=== PATIENT | female | born 1955 | race Caucasian/White ===

== ENCOUNTER 2021-10-17 20:36 | Outpatient (CLI) | payer MEDICARE, OTHER | END 2021-10-17 20:37 | disposition critical access hospital (66) | LOC: EMS 20:36 | DX: S06.9X1A Unspecified intracranial injury with loss of consciousness of 30 minutes or less, initial encounter (principal); R41.3 Other amnesia; W18.39XA Other fall on same level, initial encounter; Y93.51 Activity, roller skating (inline) and skateboarding; Y92.331 Roller skating rink as the place of occurrence of the external cause | CPT/HCPCS: A0425; A0429 ==

== ENCOUNTER 2021-10-17 20:47 | Emergency (ER) | payer MEDICARE, OTHER ==
--- NOTE | 2021-10-17 21:27 | ED Physician Documentation ---
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 Chronic cervical neck pain - Past Surgical History Past Surgical History: Yes Ortho: Spine surgery - Allergies Allergies/Adverse Reactions: Allergies Allergy/AdvReac Type Severity Reaction Status Date / Time No Known Drug Allergies Allergy Verified 10/17/21 22:24 - Social History Does the pt smoke?: No Smoking Status: Former smoker Does the pt drink ETOH?: No Does the pt have substance abuse?: No - Immunizations Immunizations are current?: Yes Results - Vitals Vitals: Oxygen O2 Source Room air - Labs Labs: Laboratory Tests 10/17/21 10/17/21 10/17/21 22:12 22:12 22:12 WBC 11.1 H RBC 4.74 Hgb 14.8 Hct 43.6 MCV 92.0 MCH 31.2 H MCHC 33.9 RDW 11.5 L Plt Count 255 MPV 10.1 Neut # (Auto) 8.6 H Lymph # (Auto) 1.8 [place] # (Auto) 0.6 Eos # (Auto) 0.1 Baso # (Auto) 0.0 Absolute Nucleated RBC 0.00 Nucleated RBC % 0.0 Sodium 137 Potassium 3.5 Chloride 100 L Carbon Dioxide 25 Anion Gap 12.0 BUN 12 Creatinine 1.0 Estimated GFR (MDRD) 55 L Glucose 118 H Calcium 9.2 Troponin I High Sens 9.0 Departure - Departure Disposition: 01 Home, Self Care Clinical Impression: Syncope Qualifiers: Syncope type: unspecified Qualified Code(s): R55 - Syncope and collapse Condition: Good Instructions: ED Head Injury Closed, ED Fainting Unkn Cause Follow-Up: BHUMI FIGUEROA MD [Primary Care Provider] - Comments: As we discussed, it is unclear if you fell because you passed out (syncope), or passed out because you fell (and presumably hit your head if this is the case). You also could have passed out and then hit your head. The CT head is unremarkable; there is no evidence on the physical exam nor CT head of concerning injury. Your EKG and blood tests (including a cardiac blood test) are unremarkable. This is reassuring, but further testing might be necessary (at the discretion of your primary care provider). Discharge Date/Time: 10/18/21 00:47
[2021-10-17 22:28] LABS: BASOPHILS % (AUTO) 0.4 %; EOSINOPHILS # (AUTO) 0.1 10^3/uL (0.0-0.7); EOSINOPHILS % (AUTO) 0.7 %; HCT - HEMATOCRIT 43.6 % (37.0-47.0); HGB - HEMOGLOBIN 14.8 g/dL (12.0-16.0); LYMPHOCYTES # (AUTO) 1.8 10^3/uL (1.5-3.5); LYMPHOCYTES % (AUTO) 16.2 %; MEAN CORPUSCULAR HEMOGLOBIN 31.2 pg (27.0-31.0); MEAN CORPUSCULAR HGB CONC 33.9 g/dL (32.0-36.0); MEAN PLATELET VOLUME 10.1 fL (7.9-10.8); MONOCYTES # (AUTO) 0.6 10^3/uL (0.0-1.0); MONOCYTES % (AUTO) 4.9 %; NEUTROPHILS # (AUTO) 8.6 10^3/uL (1.5-6.6); NEUTROPHILS % (AUTO) 77.3 %; PLT - PLATELET COUNT 255 10^3/uL (130-450); RED BLOOD COUNT 4.74 10^6/uL (4.20-5.40); RED CELL DISTRIBUTION WIDTH 11.5 % (12.0-15.0); WHITE BLOOD COUNT 11.1 x10^3/uL (4.8-10.8)
--- NOTE | 2021-10-17 22:33 | CT Report ---
PROCEDURE: HEAD WO INDICATIONS: Head injury with LOC TECHNIQUE: Noncontrast 4.5 mm thick angled axial sections acquired from the foramen magnum to the vertex. For r adiation dose reduction, the following was used: automated exposure control, adjustment of mA and/or kV according to patient size. COMPARISON: None. FINDINGS: Image quality: Excellent. CSF spaces: Basal cisterns are patent. No extra-axial fluid collections. Ventricles are normal in size and shape. Brain: No midline shift. No intracranial masses or hemorrhage. Wiley-white matter interface is norm al. Skull and face: Calvarium and visualized facial bones are intact, without suspicious lesions. Sinuses: Visualized sinuses and mastoids are clear. IMPRESSION: No acute intracranial abnormality. Reviewed by: Toy Ferraro MD on 10/17/2021 10:31 PM [facility] [place] Approved by: Toy Ferraro MD on 10/17/2021 10:31 PM [facility] [place] Station ID: [id number]
[2021-10-17 22:40] LABS: CALCIUM 9.2 mg/dL (8.5-10.3); POTASSIUM 3.5 mmol/L (3.5-5.0)
[2021-10-18 00:04] VITALS: BP 158/81
--- NOTE | 2021-10-19 09:35 | ED Physician Documentation ---
PD HPI SYNCOPE - Stated complaint Stated Complaint: GLF/HEAD INJ - Chief complaint Chief Complaint: General - History obtained from History obtained from: Patient - History of Present Illness Witnessed: Unwitnessed Timing - onset: Enter time (20:00) Duration: Unknown Preceding symptoms: None Associated symptoms: None Contributing factors: Exertion Injury occurred: Fell Pain level max: 0 Pain level now: 0 Treatment FISHER CLAM: No: C spine precautions Similar symptoms before: Has not had sx before Recently seen: Not recently seen - Additional information Additional information: BIBA. Patient had just finished roller skating tonight when, at approximately 8 PM, she recalls leaning against a railing and taking her mask off and taking a drink of cold water. She does not recall feeling any symptoms, but next recollection was being in the ambulance en route to the ED. She presents asymptomatic although continues to be amnestic for the event. She was still wearing her helmet when the incident occurred. Review of Systems Eyes: reports: Reviewed and negative Cardiac: reports: Reviewed and negative Respiratory: reports: Reviewed and negative GI: reports: Reviewed and negative : denies: Incontinent Musculoskeletal: reports: Reviewed and negative Neurologic: reports: LOC. 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 Chronic cervical neck pain - Past Surgical History Past Surgical History: Yes Ortho: Spine surgery - Allergies Allergies/Adverse Reactions: Allergies Allergy/AdvReac Type Severity Reaction Status Date / Time No Known Drug Allergies Allergy Verified 10/17/21 22:24 - Social History Does the pt smoke?: No Smoking Status: Former smoker Does the pt drink ETOH?: No Does the pt have substance abuse?: No - Immunizations Immunizations are current?: Yes PD ED PE NORMAL - Vitals Vital signs reviewed: Yes - General General: Alert and oriented X 3, No acute distress, Well developed/nourished - HEENT HEENT: Atraumatic, PERRL, EOMI - Neck Neck: No bony TTP, C-Spine cleared by NEXUS criteria - Cardiac Cardiac: RRR, No murmur - Respiratory Respiratory: No respiratory distress, Clear bilaterally - Abdomen Abdomen: Soft, Non tender - Back Back: No spinal TTP - Derm Derm: Normal color, Warm and dry - Extremities Extremities: No deformity, Normal ROM s pain - Neuro Neuro: Alert and oriented X 3, consumer insights specialist 2-12 intact, No motor deficit, No sensory deficit, Normal speech Eye Opening: Spontaneous Motor: Obeys Commands Verbal: Oriented GCS Score: 15 Results - Vitals Vitals: Oxygen O2 Source Room air - EKG (time done) No standard instances Rate: Rate (enter#) (83) Rhythm: NSR [place]: Normal Intervals: Normal [place] QRS: Normal Ischemia: Normal ST segments Computer interpretation: Disagree with computer (no ST depression) - Labs Labs: Laboratory Tests 10/17/21 10/17/21 10/17/21 22:12 22:12 22:12 WBC 11.1 H RBC 4.74 Hgb 14.8 Hct 43.6 MCV 92.0 MCH 31.2 H MCHC 33.9 RDW 11.5 L Plt Count 255 MPV 10.1 Neut # (Auto) 8.6 H Lymph # (Auto) 1.8 [place] # (Auto) 0.6 Eos # (Auto) 0.1 Baso # (Auto) 0.0 Absolute Nucleated RBC 0.00 Nucleated RBC % 0.0 Sodium 137 Potassium 3.5 Chloride 100 L Carbon Dioxide 25 Anion Gap 12.0 BUN 12 Creatinine 1.0 Estimated GFR (MDRD) 55 L Glucose 118 H Calcium 9.2 Troponin I High Sens 9.0 - Rads (name of study) CT head Radiology: Prelim report reviewed, See rad report PD MEDICAL DECISION MAKING - ED course Complexity details: reviewed results, re-evaluated patient, considered differential, d/w patient ED course: EMS reports fall with head injury and LOC, but at the time of this HPI, EMS is not in ED, patient does not recall if she fell or not, the rink is closed, and patient was not with anyone that she can contact to ask if it appeared she passed out or slipped and fell. She is asymptomatic on my HPI. Unremarkable tests including EKG, CTH, and blood tests including troponin. It is unclear if she slipped and fell, struck her head causing an LOC, or if this was a syncopal event. Her work up does not indicate the need for hospitalization nor further emergent testing. Results reviewed with patient, return precautions discussed. I instructed her to follow up with PMD, as further testing might be needed as part of syncope w/u Departure - Departure Disposition: 01 Home, Self Care Clinical Impression: Syncope Qualifiers: Syncope type: unspecified Qualified Code(s): R55 - Syncope and collapse Condition: Good Instructions: ED Head Injury Closed, ED Fainting Unkn Cause Follow-Up: BHUMI FIGUEROA MD [Primary Care Provider] - Comments: As we discussed, it is unclear if you fell because you passed out (syncope), or passed out because you fell (and presumably hit your head if this is the case). You also could have passed out and then hit your head. The CT head is unremarkable; there is no evidence on the physical exam nor CT head of concerning injury. Your EKG and blood tests (including a cardiac blood test) are unremarkable. This is reassuring, but further testing might be necessary (at the discretion of your primary care provider). Discharge Date/Time: 10/18/21 00:47
== END 2021-10-18 00:47 | disposition home or self-care (01) ==
LOC: ED 20:47
DX: R41.3 Other amnesia (principal); R55 Syncope and collapse; S09.90XA Unspecified injury of head, initial encounter; I10 Essential (primary) hypertension; Z87.891 Personal history of nicotine dependence
CPT/HCPCS: 36415; 80048; 84484; 85025; 93005; 99283; 99284

== ENCOUNTER 2022-02-13 12:08 | Outpatient (CLI) | payer MEDICARE, OTHER | END 2022-02-13 12:09 | disposition home or self-care (01) | LOC: LAB 12:08 | PROVIDERS: ATTEND Internal Medicine Critical Care Medicine | DX: J45.20 Mild intermittent asthma, uncomplicated (principal); Z20.822 Contact with and (suspected) exposure to COVID-19 ==